=== PATIENT | male | born 1990 | race Two or more races ===

== ENCOUNTER 2018-09-17 06:23 | Emergency (ER) | payer OTHER ==
--- NOTE | 2018-09-17 07:25 | RADIOLOGY REPORT (SQ) ---
EXAM: CT head without IV contrast CLINICAL DATA: worst ERICKSON ever TECHNICAL DATA: Multiple axial CT images of the brain were performed followed by sagittal and coronal reconstructed images. The CT study is performed according to ALARA (as low as reasonably achievable) or ALARA/IMAGE GENTLY, with automatic adjustment of mA and/or kV according to patient size. Performed on: 09/17/2018 at 6:50 AM Comparisons: None. FINDINGS: There is no evidence of mass, acute mass effect or midline shift. There are no acute extra-axial fluid collections. There is no evidence of acute intracranial hemorrhage. The cerebral sulci and ventricles are normal in size and configuration. There are no focal abnormal areas of increased or decreased attenuation. There is no significant mucosal thickening of the paranasal sinuses. The mastoid air cells are clear. The orbital contents are grossly unremarkable. No acute osseous abnormalities are identified. No focal soft tissue abnormalities are identified. IMPRESSION: There is no evidence of acute intracranial pathology..
--- NOTE | 2018-09-17 08:17 | ER Document Report ---
ED General - General Chief Complaint: Headache, Worst Ever Stated Complaint: HEADACHE Time Seen by Provider: 09/17/18 08:17 Primary Care Provider: KASSANDRA KRISHNA MD [ACTIVE STAFF] - CLAUDE HERNANDEZ MD [NO LOCAL MD] - Follow up in 3-5 days TRAVEL OUTSIDE OF THE [place] IN LAST 30 DAYS: No - HPI Notes: 28-year-old male presents to the ED with complaints of work of his life for the last 3 days, states headache started while he was sitting and watching TV, states gradual onset dull and in bilateral occipital area. States he took ibuprofen with some relief but did not resolve headache. Reports nausea and denies any photophobia, phonophobia. Patient states this morning he woke up with this headache and it was horrible and felt like it was pulsating and heartbeat". Patient is a non-smoker, reports he does not drink does not have a primary care provider. Does not take any daily medications. Reports he has had a history of headaches in the past but they only lasted for about half an hour however this is lasted for the last 3 days. States headache comes and goes, worse in the morning. Does not take any blood thinners. No prior history of any neurological cardiac disorders. Denies fevers, chills, chest pain,palpitations, shortness of breath, dyspnea,vomiting, diarrhea, abdominal pain, hematuria,blurred vision, double vision, loss of vision, speech changes, LH, dizziness, syncope, wheezing, ST, URI, neck pain, weakness, bowel or bladder dysfunction, saddle anesthesia, numbness or tingling in bilateral upper or lower extremities equally, muscle paralysis, weakness in bilateral upper or lower extremities equally or rash. Denies IV drug use. - Related Data Allergies/Adverse Reactions: No Known Allergies Allergy (Unverified 09/17/18 06:33) Past Medical History - General Information source: Patient - Social History Smoking Status: Never Smoker Chew tobacco use (# tins/day): No Frequency of alcohol use: None Drug Abuse: None Family History: Reviewed & Not Pertinent Patient has suicidal ideation: No Patient has homicidal ideation: No Renal/ Medical History: Denies: Hx Peritoneal Dialysis Review of Systems - Review of Systems Constitutional: No symptoms reported EENT: No symptoms reported Cardiovascular: No symptoms reported Respiratory: No symptoms reported Gastrointestinal: Nausea Genitourinary: No symptoms reported Male Genitourinary: No symptoms reported Musculoskeletal: No symptoms reported Skin: No symptoms reported Hematologic/Lymphatic: No symptoms reported Neurological/Psychological: See HPI Physical Exam - Vital signs Vitals: Temp Pulse Resp BP Pulse Ox 98.2 F 63 16 122/67 99 09/17/18 06:39 09/17/18 06:39 09/17/18 06:39 09/17/18 06:39 09/17/18 06:39 - Notes Notes: PHYSICAL EXAMINATION: GENERAL: Well-appearing, well-nourished and in no acute distress. HEAD: Atraumatic, normocephalic. EYES: Pupils equal round and reactive to light, extraocular movements intact, sclera anicteric, conjunctiva are normal. ENT: Nares patent, oropharynx clear without exudates. Moist mucous membranes. NECK: Normal range of motion, supple without lymphadenopathy LUNGS: Breath sounds clear to auscultation bilaterally and equal. No wheezes rales or rhonchi. HEART: Regular rate and rhythm without murmurs ABDOMEN: Soft, nontender, nondistended abdomen. No guarding, no rebound. No masses appreciated. Musculoskeletal: Normal range of motion, no pitting or edema. No cyanosis. NEUROLOGICAL: Cranial nerves grossly intact. Normal speech, normal gait. Normal sensory, motor exams. PERRLA, EOMI. Full motor and sensory function throughout. Cto + 2 equal bilaterally in BUE. Tongue midline. No pronator drift. No ataxia. Neck with APROM. Raises eyebrows. Strength is 5 out of 5 in bilateral upper and lower extremities equally.Speaks in full sentences. No we akness on one side. Romberg gait steady able to walk straight line. Able to recall 5 objects. PSYCH: Normal mood, normal affect. SKIN: Warm, Dry, normal turgor, no rashes or lesions noted. Course - Re-evaluation Re-evalutation: 09/17/18 09:16 28-year-old male afebrile vitals stable and noted worse headache of life for the last 3 days, comes and goes. CT of head negative for any acute findings per radiology. Patient states he had some relief with ibuprofen. Initiated migraine cocktail, does have a friend who will be able to drive him home. 0945: IV cocktail initiated, patient states he is feeling slight better, afebrile vitals stable no distress. 1056-patient states that he is feeling much better, headache has resolved, discussed with patient his labs were all normal, CBC CMP unremarkable. Discussed with patient that he does need to stay hydrated, document his migraines, look for any precursors for his migraines, avoid foods such as coffee, all questions and concerns were answered by this provider. Discussed with patient that he does need to follow-up with primary care provider and neurologist within 3 days. After performing a Medical Screening Examination, I estimate there is LOW risk for ACUTE GLAUCOMA, TEMPORAL ARTERITIS, MENINGITIS, INCRANIAL HEMORRHAGE, or ISCHEMIC STROKE thus I consider the discharge disposition reasonable. I have reevaluated this patient multiple times and no significant life threatening changes are noted. The patient and I have discussed the diagnosis and risks, and we agree with discharging home with close follow-up with the understanding that symptoms and presentations can change. We also discussed returning to the Emergency Department immediately if new or worsening symptoms occur. We have discussed the symptoms which are most concerning (e.g., changing or worsening symptoms, new numbness or weakness, vomiting, fever) that necessitate immediate return. he verbalized understanding this plan of care and agree with plan of care. Patient was discharged home - Vital Signs Vital signs: Temp Pulse Resp BP Pulse Ox 98.2 F 63 16 122/67 99 09/17/18 06:39 09/17/18 06:39 09/17/18 06:39 09/17/18 06:39 09/17/18 06:39 - Laboratory Result Diagrams: 09/17/18 10:00 09/17/18 10:00 Laboratory results interpreted by me: 09/17/18 10:00 Chloride 108 H Discharge - Discharge Clinical Impression: Headache Condition: Stable Disposition: HOME, SELF-CARE Instructions: Intravenous Compazine for Headaches ([facility]), Headache ([facility]), Intravenous (IV) Fluids ([facility]), Migraine Headache ([facility]) Additional Instructions: CT of your head today was normal. You have persistent headaches, referral has been given for neurology follow-up. Please follow-up with your primary care provider. All other lab work today was given IV fluids, IV Benadryl, IV antibiotic, IV anti-inflammatory to help reduce your headache. Advised to increase oral hydration, avoid any caffeine or diuretic substances such as coffee or soda. Take Zofran as needed if you are feeling nauseous, ibuprofen as needed for headaches. Advised to keep a migraine diary, experiencing a headache to go to "dark room, avoid any aggravating foods that can precipitate migraines such as chocolate, coffee etc. who has been given until Saturday, return if you are feeling better or use work note as needed. If you experience worse headache of your life, fever, vomiting, confusion, numbness or tingling down her arms or legs, facial droop, abdominal pain, change in vision, weakness etc. return to the emergency room immediately Return immediately for any new or worsening symptoms. Follow up with primary care provider, call tomorrow to make followup appointment. Prescriptions: Ibuprofen [Ibu] 600 mg PO Q6HP PRN #20 tablet PRN Reason: Ondansetron [Zofran Odt 4 mg Tablet] 1 - 2 tab PO Q4H PRN #15 tab.rapdis PRN Reason: For Nausea/Vomiting Forms: Return to Work Referrals: CLAUDE HERNANDEZ MD [NO LOCAL MD] - Follow up in 3-5 days KASSANDRA KRISHNA MD [ACTIVE STAFF] -
[2018-09-17] MEDS ORDERED: KETOROLAC TROMETHAMINE INJ/PF 30 MG/1 ML SDV IV ONE (08:54)
[2018-09-17] MEDS ORDERED: DIPHENHYDRAMINE HCL 50 MG/ML VIAL IV ONE (08:54)
[2018-09-17] MEDS ORDERED: NORMAL SALINE 1000 ML 1,000 ML IV ONE (08:54)
[2018-09-17] MEDS ORDERED: PROCHLORPERAZINE EDISYLATE INJ 10 MG/2 ML VIAL IV ONE (08:54)
[2018-09-17 10:18] LABS: ABSOLUTE EOSINOPHILS # (AUTO) 0.1 10^3/uL (0.0-0.6); ABSOLUTE LYMPHOCYTES (AUTO) 2.5 10^3/uL (0.5-4.7); ABSOLUTE MONOCYTES (AUTO) 0.5 10^3/uL (0.1-1.4); ABSOLUTE NEUT (AUTO) 5.3 10^3/uL (1.7-8.2); BASOPHILS % (AUTO) 0.5 % (0-2); EOSINOPHILS % (AUTO) 1.5 % (0-6); HEMATOCRIT 41.2 % (37.9-51.0); HEMOGLOBIN 14.6 g/dL (13.5-17.0); LYMPHOCYTES % (AUTO) 29.6 % (13-45); MEAN CORPUSCULAR HEMOGLOBIN 31.6 pg (27.0-33.4); MEAN CORPUSCULAR HGB CONC 35.5 g/dL (32.0-36.0); MEAN CORPUSCULAR VOLUME 89 fl (80-97); MONOCYTES % (AUTO) 6.4 % (3-13); PLATELET COUNT 245 10^3/uL (150-450); RED BLOOD COUNT 4.62 10^6/uL (4.35-5.55); TOTAL CELLS COUNTED % (AUTO) 100 %; WHITE BLOOD COUNT 8.6 10^3/uL (4.0-10.5)
[2018-09-17 10:35] LABS: ALANINE AMINOTRANSFERASE 22 U/L (21-72); ALBUMIN 4.1 g/dL (3.5-5.0); ALKALINE PHOSPHATASE 63 U/L (38-126); ANION GAP 8 (5-19); ASPARTATE AMINO TRANSFERASE 18 U/L (17-59); BILIRUBIN,DIRECT 0.3 mg/dL (0.0-0.4); BILIRUBIN,TOTAL 0.4 mg/dL (0.2-1.3); BLOOD UREA NITROGEN 11 mg/dL (7-20); CALCIUM 9.5 mg/dL (8.4-10.2); CARBON DIOXIDE 25 mmol/L (22-30); CHLORIDE 108 mmol/L (98-107); GLUCOSE 101 mg/dL (75-110); POTASSIUM 4.4 mmol/L (3.6-5.0); SODIUM 140.6 mmol/L (137-145); TOTAL PROTEIN 7.2 g/dL (6.3-8.2)
[2018-09-17 10:37] LABS: C-REACTIVE PROTEIN < 5.0 mg/L (<10.0)
[2018-09-17 11:01] LABS: ERYTHROCYTE SEDIMENTATION RATE 8 mm/hr (0-15)
[2018-09-17 11:30] VITALS: BP 116/69
== END 2018-09-17 11:33 | disposition home or self-care (01) ==
LOC: ER 06:23
DX: R51 Headache (principal); R11.0 Nausea
CPT/HCPCS: 99284; 96374; 96375; 36415; 85025; 85652; 86140; 80053; 70450; J1200; J1885; J0780; J7030